=== PATIENT | female | born 1990 | race Caucasian/White ===

== ENCOUNTER 2017-11-04 22:04 | Emergency (ER) | payer OTHER, MEDICAID ==
[~2017-11-04] VITALS: Ht 167.6 cm; Wt 54.4 kg
[~2017-11-04 22:04] MED LIST: NORCO 5-325 TA1 EACH PO; PENICILLIN VK500 MG PO
[2017-11-04] MEDS ORDERED: CYCLOBENZAPRINE5 MG PO (23:36)
[2017-11-05 00:21] VITALS: BP 106/38
== END 2017-11-05 00:22 | disposition home or self-care (01) ==
LOC: M.ERS 22:04
DX: S29.011A Strain of muscle and tendon of front wall of thorax, initial encounter (principal); X58.XXXA Exposure to other specified factors, initial encounter; Y93.89 Activity, other specified; Y92.89 Other specified places as the place of occurrence of the external cause; Y99.8 Other external cause status

== ENCOUNTER 2017-11-22 04:55 | Emergency (ER) | payer OTHER, MEDICAID ==
[~2017-11-22] VITALS: Ht 162.6 cm; Wt 68.0 kg
[~2017-11-22 04:55] MED LIST changes: +CYCLOBENZAPRINE5 MG PO
[2017-11-22] MEDS ORDERED: CLEOCIN HCL150 MG PO (05:23)
[2017-11-22 05:34] VITALS: BP 121/64
== END 2017-11-22 05:35 | disposition home or self-care (01) ==
LOC: M.ERS 04:55
DX: L03.116 Cellulitis of left lower limb (principal)

== ENCOUNTER 2018-06-26 20:19 | Emergency (ER) | payer OTHER, MEDICAID ==
[~2018-06-26] VITALS: Ht 167.6 cm; Wt 81.7 kg
[~2018-06-26 20:19] MED LIST changes: +CLEOCIN HCL150 MG PO
[2018-06-26 20:29] VITALS: BP 117/52
[2018-06-26] MEDS ORDERED: HYDROCODON-ACE1 EAC7 PO (20:44)
[2018-06-26] MEDS ORDERED: CLEOCIN HCL300 MG PO (20:44)
== END 2018-06-26 20:48 | disposition home or self-care (01) ==
LOC: M.ERS 20:19
DX: L03.115 Cellulitis of right lower limb (principal)

== ENCOUNTER 2018-07-10 04:04 | Emergency (ER) | payer OTHER ==
[~2018-07-10] VITALS: Ht 167.6 cm; Wt 79.4 kg
[~2018-07-10 04:04] MED LIST changes: +CLEOCIN HCL300 MG PO; +HYDROCODON-ACE1 EAC7 PO
[2018-07-10] MEDS ORDERED: ULTRAM 50MG TAB50 MG PO (04:25)
[2018-07-10 04:38] VITALS: BP 121/64
== END 2018-07-10 04:39 | disposition home or self-care (01) ==
LOC: M.ERS 04:04
DX: M79.671 Pain in right foot (principal)

== ENCOUNTER 2020-10-23 12:11 | Emergency (ER) | payer OTHER, MEDICAID ==
[~2020-10-23] VITALS: Ht 167.6 cm; Wt 79.4 kg
[~2020-10-23 12:11] MED LIST changes: +ULTRAM 50MG TAB50 MG PO
[2020-10-23] MEDS ORDERED: DOXYCYCLINE 10100 MG PO (14:26)
[2020-10-23] MEDS ORDERED: APAP W/CODEINE1 TA2 PO (14:26)
[2020-10-23 14:30] VITALS: BP 111/71
== END 2020-10-23 15:18 | disposition home or self-care (01) ==
LOC: M.ERS 12:11
DX: M25.571 Pain in right ankle and joints of right foot (principal); L03.115 Cellulitis of right lower limb